=== PATIENT | female | born 1975 | race Hispanic/Latino ===

== ENCOUNTER 2016-07-10 19:08 | Inpatient (IN) | payer MEDICAID, OTHER ==
[~2016-07-10] VITALS: Ht 154.9 cm; Wt 58.3 kg
--- NOTE | 2016-07-10 19:12 | ED.REPORT ---
HPI-Neurologic Deficit Date of Service Jul 10, 2016 ED Provider: Rachana Jamil MD Pt is a 40 y/o Khmer speaking female w/ a hx of uncontrolled hypertension presenting to the ED with family due to stroke-like symptoms onset about 19:00 today. The patient and her family were eating food and they noticed that she was eating slowly she did not notice this. She then went to the restroom and came back complaining of abdominal pain which has persisted. Associated symptoms include numbness of bilateral upper extremities, focal weakness of the left side, difficulty speaking in the sense that when she talks she speaks slowly with slurred speech, chest tightness, nausea, vomiting, and shortness of breath. Pt denies fever, chills, vision change. At time of interview, she is experiencing chest tightness, SOB, Denies nausea, vomiting. Nursing Notes Stated Complaint: UNABLE TO MOVE L SIDE Nursing Notes Reviewed: Yes Allergies: Coded Allergies: No Known Allergies (Verified Allergy, Severe, 01/18/04) General Time Seen by Provider: 19:13 Chief Complaint Other (slurred speech and left arm weakness) Hx Obtained From: Patient, Other family... Arrived By: Walk-in Sudden in Onset?: Yes Onset Occurred: 16 - 30 minutes ago Symptom Duration: Since onset Progression Since Onset: Rapidly improving Location: : Abdomen: Chest Quality: Painful Radiation: : Does not radiate Severity: Current: Mild Severity: Maximum: Moderate Similar Sx Previous: No Risk Factors TPA Administration/Criteria Stroke Thrombolytic Therapy : TPA Considered: Yes Neurologist Contacted: Yes TPA Administered Intravenously: No, not indicated NIH Stroke Scale Level of Consciousness: Alert and responsive (0) Ask Month & Age: 1 question right (1) (age incorrect) Open/Close Eyes/Hand Environmental Engineering Technician: Performs both tasks (0) Horizontal EO Movements: None (0) Visual Frank: No visual loss (0) Facial Palsy: Minor paralysis (1) (mild, right) Right Arm Motor Drift (10s): No drift 10 sec (0) Left Arm Motor Drift (10s): Drift, not touch bed (1) Right Leg Motor Drift (5s): No drift 5 sec (0) Left Leg Motor Drift (5s): No drift 5 sec (0) Limb Ataxia FNF/Heel-Centeno: No ataxia (0) Sensation (Arms/Legs/Face): No sensory loss (0) Language Aphasia: No aphasia, normal (0) Dysarthria: No dysarthria, normal (0) Extinction/Inattention: No exctinct/inattent (0) NIHSS Score: 3 Time NIHSS Performed: 20:00 Date NIHSS Performed: Jul 10, 2016 Past Medical History Past Medical History Hypertension - uncontrolled Past Surgical History Denies Social History Alcohol Use: Denies alcohol use Other Social History: Good social support Ambulatory Status Independent Review of Systems Constitutional: Denies: Chills, Fever Respiratory: Reports: Shortness of breath Cardiovascular: Reports: Chest pain GI: Reports: Abdominal pain, Nausea, Vomiting Neurologic: Reports: Change LOC, Focal weakness, Numbness, Slurred speech, Denies: Vision change Complete sys rev & neg: except as marked. Physical Exam Initial Vital Signs Vital Signs (First) Date Time Temp Pulse Resp B/P Pulse Ox O2 Delivery O2 Flow Rate FiO2 07/10/16 19:15 36.1 78 20 140/92 Room Air 07/10/16 20:00 100 Initial VS: Reviewed, Vital signs normal ENT: Mucous membranes moist, Conjunctiva normal, No scleral icterus Neck: Supple, Full range of motion Skin: Warm, Dry, No cyanosis Psychiatric: Mood/affect normal, Behavior normal, Normal thought content General/Constitutional: Awake, Alert, No acute distress, Cooperative, Not toxic appearing Head / Eyes: Atraumatic, Normocephalic, PERRL, EOMI, No nystagmus, No periorbital redness, No periorbital swelling Respiratory / Chest: Atraumatic, Breath sounds NL, Breath sounds = bilat, No respiratory distress, No rales, No rhonchi, No wheezing, No retractions, No stridor, No chest tenderness, No chest wall deformity, No crepitus Cardiovascular: Heart rate NL, Regular rhythm, Heart sounds NL, No gallop, No murmurs, No rubs, Cap refill not delayed, Peripheral circulation NL Neurologic: Oriented X3, Speech NL, No sensory deficits, Cerebellar NL Slight right sided facial droop. 5/5 strength bilateral upper extrem but left weaker than right. Abdomen: Atraumatic, Soft, Non-tender, No guarding, No rebound, No palpable mass Interpretation & Diagnostics Interpretation & Diagnostics: CTA chest/abdomen w/ and w/out contrast: IMPRESSION: No aortic dissection or aneurysm. Gallbladder filled with calculi, and possibly sludge. No definite pericholecystic fluid or biliary ductal dilatation. Recommend clinical correlation and with LFTs to exclude acute cholecystitis. Distended stomach and proximal duodenum. Dictated by: Onel Parish M.D. on 07/10/2016 at 19:54 Approved by: Onel Parish M.D. on 07/10/2016 at 20:01 Lab Results Interpretation Result Diagram: 07/10/16 1720 07/10/16 1720 Test 07/10/16 17:20 White Blood Count 7.2th/mm3 (3.8-10.1) Red Blood Count 4.52mil/mm3 (3.90-5.20) Hemoglobin 12.6g/dL (12.0-15.6) Hematocrit 37.5% (35.0-46.0) Mean Corpuscular Volume 83.0fL (81-100) Mean Corpuscular Hemoglobin 27.9pg (27.0-35.0) Mean Corpuscular Hemoglobin Concent 33.6% (32.0-37.0) Red Cell Distribution Width 13.5% (12.3-15.4) Platelet Count 212bil/L (150-400) Neutrophils (%) (Auto) 43.0% (40-74) Lymphocytes (%) (Auto) 50.2% (14-46) Monocytes (%) (Auto) 5.1% (4-12) Eosinophils (%) (Auto) 1.0% (0-5) Basophils (%) (Auto) 0.6% (0-3) Hold Purple Top Tube Received (Received) Prothrombin Time 10.1sec (8.1-12.5) Prothromb Time International Ratio 0.95ratio Activated Partial Thromboplast Time 22.5sec (22.8-33.0) Hold Blue Top Tube Received (Received) Sodium Level 138mEq/L (134-144) Potassium Level 3.1mEq/L (3.5-5.2) Chloride Level 102mEq/L (97-108) Carbon Dioxide Level 21mmol/L (18-29) Blood Urea Nitrogen 22mg/dL (6-20) Creatinine 0.59mg/dL (0.57-1.00) Estimat Glomerular Filtration Rate 163mL/min (>59) Glucose Level 139mg/dL (60-99) Calcium Level 8.4mg/dL (8.5-10.1) Total Bilirubin 0.2mg/dL (0.0-1.2) Aspartate Amino Transf (AST/SGOT) 103U/L (0-50) Alanine Aminotransferase (ALT/SGPT) 59U/L (0-32) Alkaline Phosphatase 80U/L (25-150) Troponin T < 0.010ug/L (0.0-0.011) Total Protein 6.9g/dL (6.4-8.4) Albumin 4.0g/dL (3.4-5.0) Hold Red Top Tube Received (Received) Hold [place] Top Tube Received (Received) Hold Muse Top Tube Received (Received) ECG Interpretation ECG Interpretation: Sinus rhythm rate 80 Small Q wave lead III T wave inversion in AvR and V1 Time: 19:28 Interpreted by: ED physician Normal ECG Interpretation: No acute ischemic changes CT Head Interpretation IMPRESSION: No acute intracranial process This study fulfills neurological imaging criteria for inclusion or exclusion of acute stroke therapies based on available published neurological imaging guidelines. Dictated by: Onel Parish M.D. on 07/10/2016 at 19:23 Approved by: Onel Parish M.D. on 07/10/2016 at 19:26 Study: Head CT no contrast Interpretation / Wet Read by: Interpret - Radiologist Re-Eval/Medical Decision Med Decision/Clinical Course 40-year-old female with past medical history of untreated hypertension here as stroke activation for left-sided weakness. Differential diagnosis includes but is not limited to TIA versus ischemic versus hemorrhagic stroke versus electrolyte abnormality. Patient's CT head was negative, however, given she was also having chest pain and abdominal pain, I opted to rule out dissection with her focal neurologic deficit. She does not have any evidence of aortic dissection, and was feeling much better after her CT scans. Of note, her CT scan did show a gallbladder with stones and she has mildly elevated LFTs, however, her abdomen is benign at this time, and I do not feel she requires ultrasound of her gallbladder to rule out cholecystitis. I discussed the case with neurology at [facility], who agreed that since her symptoms have resolved, she is not a TPA candidate. However, they did recommend she get a CTA of her head. I have admitted her to the hospitalist service for fluid hydration, given she has already received a dye load from her aortic study. They will order a CTA of her head tomorrow, and in addition to TIA workup. She and her family are aware and amenable to plan at this time. Re-Evaluation/Progress : Time of Eval: 20:17 )( Re-Eval Neurologic Exam: Pt is back to baseline Re-Evaluation/Progress Note: Pt rechecked. NIH stroke scale is now 0. Informed pt of need for admission for further workup. Pt understands and agrees with plan for admission. All questions addressed. Consultation #1: Consulted With: Neurology Call Returned at: 20:10 Note: Case discussed with [facility] Stroke Neurologist. Recommends NO TPA. Consultation #2: Referral / Consult Name: Michi Monet MD Consulted With: Hospitalist Call Returned at: 21:00 Er Nurse: Will see patient, Agrees with eval, Agrees with plan, Accepts admit Counseled Regarding: Diagnosis, Lab results, Need for admission Discharge & Departure Impression: Primary Impression: Transient ischemic attack Transient cerebral ischemia type: unspecified Qualified Code: G45.9 - Transient cerebral ischemic attack, unspecified Disposition: ADMITTED TO HOSPITAL Discharge Condition All VS Reviewed: Yes Condition: Stable Scribe Attestation Portions of this note were transcribed by Maxim Rader. I, Dr. Jamil, personally performed the history, physical exam and medical decision-making; I reviewed and confirmed the accuracy of the information in the transcribed note. Signed by Harper Monk, 07/10/16 - 1944 Rachana Jamil MD Jul 10, 2016 19:12 MAXIM RADER Jul 10, 2016 19:18
[2016-07-10 19:15] VITALS: BP 140/92; PULSE 78; RESP 20
--- NOTE | 2016-07-10 19:28 | DRSVH ---
PROCEDURE: CT BRAIN (TPA) ([id number]) INDICATIONS: Stroke TECHNIQUE: Noncontrast 4.5 mm thick angled axial sections acquired from the foramen magnum to the vertex, with c oronal reformats. COMPARISON: None. FINDINGS: Image quality: Excellent. CSF spaces: Basal cisterns are patent. No extra-axial fluid collections. Ventricles are normal in size and shape. Brain: No midline shift. No intracranial masses or hemorrhage. Henry-white matter interface is norm al. Skull and face: Calvarium and visualized facial bones are intact, without suspicious lesions. Sinuses: Visualized sinuses and mastoids are clear. IMPRESSION: No acute intracranial process This study fulfills neurological imaging criteria for inclusion or exclusion of acute stroke therapie s based on available published neurological imaging guidelines. Dictated by: Onel Parsih M.D. on 07/10/2016 at 19:23 Approved by: Onel Parish M.D. on 07/10/2016 at 19:26
[2016-07-10] MEDS ORDERED: Ondansetron 2 mg/mL 2 mL Inj ONE (19:35)
[2016-07-10] MEDS ORDERED: Ondansetron 2 mg/mL 2 mL Inj IVPUSH ONE (19:40)
[2016-07-10 20:00] VITALS: BP 122/60; PULSE 79; RESP 18; O2SAT 100
--- NOTE | 2016-07-10 20:03 | DRSVH ---
PROCEDURE: CT ANG CHEST/ABD W/WO CONTRAST ([id number]) INDICATIONS: left neuro deficit + chest pain TECHNIQUE: Precontrast 5 mm thick sections acquired from the lung apices to the iliac crests. After the adminis tration of intravenous contrast, 3 mm thick sections again acquired from the lung apices to the iliac crests. 3-dimensional maximum intensity projection (MIP) oblique sagittal and coronal reformats wer e then acquired, and/or 3-dimensional volume rendering reformats. For radiation dose reduction, the following was used: automated exposure control. COMPARISON: None. FINDINGS: Image quality: Excellent. AORTA: Normal. No evidence of aneurysm or dissection. No periaortic hematoma. CHEST: Lungs and pleura: No acute airspace opacities. No pleural effusions or pneumothorax. Central and p eripheral airways are patent and normal in caliber. Mediastinum: Heart size is normal. No pericardial effusion. No mediastinal or hilar adenopathy by size criteria. Central pulmonary arteries are normal in size. Esophagus is normal in caliber. No h iatal hernias. Bones and chest wall: No axillary adenopathy by size criteria. Thyroid gland negative. No suspicio us bony lesions. No vertebral body compression fractures. ABDOMEN: Vasculature: Celiac trunk and mesenteric arteries are patent. Renal arteries are also patent. Solid organs: Liver and spleen are normal in size. Gallbladder contains innumerable gravel-like hung culi and cholesterol calculi. There may also be gallbladder sludge Possible gallbladder wall thickeni ng although not well seen large amount of intraluminal contents. No pericholecystic fluid or edema.. Biliary system is non dilated. Pancreas enhances normally. No adrenal nodules. Both kidneys are n ormal in size and enhancement, without hydronephrosis. Peritoneum and bowel: No free fluid or air. The stomach and proximal duodenum are markedly distended Bowel loops are normal in caliber and wall thickness. Nodes and vessels: No retroperitoneal or mesenteric adenopathy by size criteria. Inferior vena cava is normal in morphology. Bones: No suspicious bony lesions. No vertebral body compression fractures. Miscellaneous: No ventral hernias. IMPRESSION: No aortic dissection or aneurysm. Gallbladder filled with calculi, and possibly sludge. No definite pericholecystic fluid or biliary du ctal dilatation. Recommend clinical correlation and with LFTs to exclude acute cholecystitis. Distended stomach and proximal duodenum. Dictated by: Onel Parish M.D. on 07/10/2016 at 19:54 Approved by: Onel Parish M.D. on 07/10/2016 at 20:01
[2016-07-10 20:04] LABS: BASOPHILS % (AUTO) 0.6 % (0-3); MONOCYTES % (AUTO) 5.1 % (4-12); Mean Corpuscular Hemoglobin 27.9 pg (27.0-35.0); Platelet Count 212 bil/L (150-400)
[2016-07-10 20:11] LABS: INR 0.95 ratio
[2016-07-10 20:36] LABS: TROPONIN T < 0.010 ug/L (0.0-0.011)
[2016-07-10] MEDS ORDERED: Alum-Mag Hydrox-Simeth 30 mL Suspension PO PRN ×2 (21:15→23:25)
[2016-07-10] MEDS ORDERED: Ondansetron 2 mg/mL 2 mL Inj IVPUSH PRN (21:15)
[2016-07-10 22:10] VITALS: BP 109/70; PULSE 71; RESP 16; O2SAT 94
[2016-07-10 22:15] LABS: APPEARANCE,URINE CLEAR (CLEAR,HAZY); COLOR,URINE YELLOW (YELLOW); OCCULT BLOOD,URINE LARGE (NEGATIVE); PH,URINE 7.5 (5.0-8.0); UROBILINOGEN,URINE NORMAL (NORMAL)
[2016-07-10 22:35] VITALS: PULSE 74
--- NOTE | 2016-07-10 22:45 | NUR ---
Admit to room 1021 report received from Rachana London in the ED at 2135. pt arrived to room approximately at 2150 via gurney. pt transferred self to bed. boy friend at bedside. pt c/o 3/10 abdominal pain. will administer pain medication. VSS. admission and med-rec.is finished. pt state she doesn't take any medication at home. oreinted pt to room and call light. will continue to monitor.
[2016-07-10] MEDS ORDERED: Polyethylene Glycol (PEG) 17 Gm Powder PO PRN (23:25)
[2016-07-10] MEDS ORDERED: Ondansetron 2 mg/mL 2 mL Inj IV PRN (23:25)
--- NOTE | 2016-07-10 23:56 | PCM.HPMED ---
Subjective Date of Service Jul 10, 2016 Primary Provider: Admitting Physician: Michi Monet MD Primary Care Physician: [facility] Attending Physician: Michi Monet MD Admit Status: From the Emergency Department Chief Complaint: Facial droop and focal weakness with inability to move left side History of Present Illness: Tammy is a 40 y/o 4 Pakistani speaking F with a hx of poorly controlled HTN (not currently on blood pressure medication) who presented to the ED with acute onset dysarthria and left-sided weakness about 7 PM on 07/10/2016. Associated symptoms included acute persistent abdominal pain. Patient states she was eating a greasy meal during dinnertime when she began to have epigastric abdominal pain that she describes as sharp 10 out of 10 onset approximately 4 hours ago. Patient described left upper extremity numbness and tingling especially in the hand with associated weakness lasting approximately 30 minutes now resolved. Patient describes slurred speech lasting approximately 30 minutes now resolved. Patient reportedly had difficulty eating her food at that time. Patient reports that she vomited once when in the ED. She endorses dizziness and weakness when standing to walk. Patient had CT chest and abdomen which showed gallbladder calculi. Patient's LFTs were elevated at ALT 59, AST 103. Associated symptoms included numbness of bilateral upper extremities, focal weakness of the left side, slurred speech , chest tightness, nausea, vomiting, and shortness of breath. She denies ever having experienced any of the symptoms of abdominal pain or weakness/slurred speech prior to today, denied fever, chills, vision change, diarrhea, constipation, sick contacts, travel. In the ED NIH stroke scale was 3 for facial palsy, left arm motor drift, and failure to identify month/age. EKG showed normal sinus rhythm, with a rate of 80, QT of 377, QTC of 435, no ST/ T-wave changes or upper allergies. CT angiogram chest and abdomen showed: No aortic dissection or aneurysm. Gallbladder filled with calculi, and possibly sludge. No definite pericholecystic fluid or biliary ductal dilatation. Recommend clinical correlation and with LFTs to exclude acute cholecystitis. Distended stomach and proximal duodenum. CT brain showed: No acute intracranial process Vital signs in ED: Temperature 36.1, pulse 79, pressure 122/60, respiratory rate 18, 100% room air. Hemogram: Leukocytes 50.2H, blood cell count 7.2, hemoglobin 12.6, hematocrit 37.5, platelets 212. Chemistry panel: Sodium 138, potassium 3.1, chloride 102, CO2 21, BUN 22, creatinine 0.59, glucose 139, calcium 8.4, AST 103 H, ALT 59 H, alkaline phosphatase 80, troponin 0.10. Review of Systems: Comprehensive review of systems was conducted and found to be negative except as described in history of present illness. Allergies Coded Allergies: No Known Allergies (Verified , 01/18/04) Home Medications No home medication. PMH Hypertension - uncontrolled Surgical History Denies past surgical history Family History Noncontributory Social History Hx Alcohol Use: No Hx Substance Use: No Hx Tobacco Use: No Smoking Status: Never Smoker Living Arrangement: with Family (is with her boyfriend) Exam Vital Signs Vital Sign - Last Date Time Temp Pulse Resp B/P Pulse Ox O2 Delivery O2 Flow Rate FiO2 07/10/16 20:00 79 18 122/60 100 Room Air 07/10/16 19:15 36.1 Exam General: Patient appears stated age and in no acute distress, alert and oriented 3, talking in full sentences, HEENT: NC/AT, eyes PERRLA, EOMI, neck supple, nontender, no nuchal signs, no adenopathy, no JVD, no masses, throat no erythema, mucous membranes pink and moist, Lungs: Lungs clear to auscultation bilaterally cali no wheezes no rhonchi no crackles Heart: Heart regular rate and rhythm without murmur, S1-S2 present Abdomen: Abdomen is soft, bowel sounds are active, abdomen is tender to palpation in the right upper quadrant and epigastric region. Otherwise abdominal exam is normal. Genitourinary: No suprapubic tenderness no CVA tenderness Extremities: Muscle strength is 5 out of 5 upper/lower extremity no edema, pulses equal upper/lower extremity Neurologic: Cranial nerves II through XII intact bilaterally, finger to nose and [id number] was normal, Skin: Good skin turgor, Refill less than 2 seconds, Psychiatric: Mood and affect were appropriate and congruent. Lab and Diagnostics Result Diagram: 07/10/16171907/10/161719 X-Rays, CTs and MRIs Date of Service: 07/10/161922 PROCEDURE: CT ANG CHEST/ABD W/WO CONTRAST INDICATIONS: left neuro deficit + chest pain FINDINGS: AORTA: Normal. No evidence of aneurysm or dissection. No periaortic hematoma. CHEST: Lungs and pleura: No acute airspace opacities. No pleural effusions or pneumothorax. Central and peripheral airways are patent and normal in caliber. Mediastinum: Heart size is normal. No pericardial effusion. No mediastinal or hilar adenopathy by size criteria. Central pulmonary arteries are normal in size. Esophagus is normal in caliber. No hiatal hernias. Bones and chest wall: No axillary adenopathy by size criteria. Thyroid gland negative. No suspicious bony lesions. No vertebral body compression fractures. ABDOMEN: Vasculature: Celiac trunk and mesenteric arteries are patent. Renal arteries are also patent. Solid organs: Liver and spleen are normal in size. Gallbladder contains innumerable gravel-like calculi and cholesterol calculi. There may also be gallbladder sludge Possible gallbladder wall thickening although not well seen large amount of intraluminal contents. No pericholecystic fluid or edema.. Biliary system is non dilated. Pancreas enhances normally. No adrenal nodules. Both kidneys are normal in size and enhancement, without hydronephrosis. Peritoneum and bowel: No free fluid or air. The stomach and proximal duodenum are markedly distended Bowel loops are normal in caliber and wall thickness. Nodes and vessels: No retroperitoneal or mesenteric adenopathy by size criteria. Inferior vena cava is normal in morphology. Bones: No suspicious bony lesions. No vertebral body compression fractures. Miscellaneous: No ventral hernias. IMPRESSION: No aortic dissection or aneurysm. Gallbladder filled with calculi, and possibly sludge. No definite pericholecystic fluid or biliary ductal dilatation. Recommend clinical correlation and with LFTs to exclude acute cholecystitis. Distended stomach and proximal duodenum. Dictated by: Onel Parish M.D. on 07/10/2016 at 19:54 Approved by: Onel Parish M.D. on 07/10/2016 at 20:01 Date of Service: 07/10/161910 PROCEDURE: CT BRAIN (TPA) INDICATIONS: Stroke TECHNIQUE: Noncontrast 4.5 mm thick angled axial sections acquired from the foramen magnum to the vertex, with coronal reformats. COMPARISON: None. FINDINGS: Image quality: Excellent. CSF spaces: Basal cisterns are patent. No extra-axial fluid collections. Ventricles are normal in size and shape. Brain: No midline shift. No intracranial masses or hemorrhage. Henry-white matter interface is normal. Skull and face: Calvarium and visualized facial bones are intact, without suspicious lesions. Sinuses: Visualized sinuses and mastoids are clear. IMPRESSION: No acute intracranial process This study fulfills neurological imaging criteria for inclusion or exclusion of acute stroke therapies based on available published neurological imaging guidelines. Dictated by: Onel Parish M.D. on 07/10/2016 at 19:23 Approved by: Onel Parish M.D. on 07/10/2016 at 19:26 Assessment & Plan Tammy is a 40 y/o 4 Pakistani speaking F with a hx of poorly controlled HTN (not currently on blood pressure medication) who presented with left-sided upper extremity numbness and tingling and weakness with associated slurred speech lasting approximately 30 minutes and acute onset epigastric/right upper quadrant persistent abdominal pain onset 7 PM on 07/10/2016 after eating a greasy meal. Patient was admitted to the hospital for TIA workup. # Acute Stroke, present on admission, active -CT brain: No acute intracranial process -CT angiogram Head in the a.m. given patient had contrast this evening with pelvic CT -MRA Brain to follow to R/O hemorrhagic conversion -Thrombolysis-->patient was not a candidate -Aspirin 325 mg daily -Start Atorvastatin 40 mg daily -Vital signs + Neuro checks Q 15 min for 2 hr, then Q 30 min for 6 hr, then Q 60 min up to 24 hours. -Continuous Cardiac Monitoring -Permissive HTN -BP goal if not on thrombolysis is to treat only if > 220 systolic or 120 Diastolic. Patient's current blood pressure is 109/70 -NIHSS score of 3, for not being able to identify month/age, for facial droop, and for left arm motor drift. -Elevate Head of Bed 30 degrees for those at risk of increased intracranial pressure/Aspiration risk. -If febrile maintain Normothermia -PT/OT/speech evaluation in the a.m. # Acute abdominal pain, present on admission, active -Abdominal exam significant for epigastric and right upper quadrant pain with palpation otherwise normal exam. -CT angiogram chest and abdomen showed: No aortic dissection or aneurysm. Gallbladder filled with calculi, and possibly sludge. No definite pericholecystic fluid or biliary ductal dilatation. Recommend clinical correlation and with LFTs to exclude acute cholecystitis. Distended stomach and proximal duodenum. -Zofran for nausea -Tylenol for pain Chronic problems # Hypertension -He should not currently on pressure medication Disposition: Admitted to in patient service with expected length of stay greater than 2 days, secondary to severity of presenting symptoms, treatment plan, complexity of clinical work up, and risk of adverse events. CODE STATUS: Full code PCP: [facility] DVT and PE prophylaxis: subcutaneous heparin Pain Evaluation: Adequate Pain Control (4 out of 10 pain at time of exam) VTE Prophylaxis: Sub-Q Heparin (Unfractionated) Resuscitation Status: CPR: Attempt Resuscitation Attending Statement The patient was seen and examined together with Dr. Clark on 07/10 and I agree with the history, exam and plan as outlined in the note above. Joey Clark DO Jul 10, 2016 22:50 Michi Monet MD Jul 11, 2016 01:49
[2016-07-11] MEDS: Heparin 5,000 Unit/mL Inj SUBQ SCH ×3 (00:02→18:14)
[2016-07-11 00:15] VITALS: BP 126/78; PULSE 63; RESP 18; O2SAT 99
[2016-07-11 02:04] VITALS: BP 121/69; PULSE 68; RESP 16; O2SAT 99
--- NOTE | 2016-07-11 05:55 | NUR ---
pain C/O of 4/10 right side abdominal and epigastric pain. Administered PRN PO Tylenol. pt report pain relief on rate of 1/10 which is her goal without any further complaints. Bed is locked an in low position. call light within reach. will continue to monitor.
[2016-07-11 06:00] VITALS: BP 116/76; PULSE 60; RESP 16; O2SAT 100
[2016-07-11 06:41] LABS: Magnesium 2.1 mg/dL (1.6-2.6)
[2016-07-11 06:48] LABS: BASOPHILS % (AUTO) 0.6 % (0-3); MONOCYTES % (AUTO) 7.1 % (4-12); Mean Corpuscular Hemoglobin 27.6 pg (27.0-35.0); Mean Corpuscular Volume 83.1 fL (81-100); NEUTROPHILS % (AUTO) 61.3 % (40-74); Platelet Count 204 bil/L (150-400)
[2016-07-11] MEDS ORDERED: Influenza (Adult) Vaccine 0.5 mL Syringe IM ONE (08:30)
[2016-07-11 09:50] LABS: Bilirubin, Direct 0.2 mg/dL (0.0-0.3)
--- NOTE | 2016-07-11 10:26 | NUR ---
Evaluation completed. Please go to "Notes" then click on "Assessments and Notes" (bottom left corner of screen). Then select appropriate discipline tab on top of screen.
--- NOTE | 2016-07-11 10:34 | NUR ---
Evaluation completed. Please go to "Notes" then click on "Assessments and Notes" (bottom left corner of screen). Then select appropriate discipline tab on top of screen.
--- NOTE | 2016-07-11 13:39 | DRSVH ---
PROCEDURE: MRI BRAIN WITHOUT CONTRAST ([id number]) INDICATIONS: Stroke TECHNIQUE: Noncontrast axial T1 spin echo, axial T2 fast spin echo, sagittal and axial FLAIR, coronal T2 fast sp in echo, axial gradient echo, axial diffusion and ADC through the brain. COMPARISON: [facility], CT, BRAIN (TPA), 07/10/2016, 19:16. FINDINGS: Image quality: Excellent. CSF Spaces: Basal cisterns are patent. No extra-axial fluid collections. Ventricles are normal in size and shape. Brain: There is a focus of T2/FLAIR hyperintensity in the frontal periventricular white matter. No i ntracranial masses or hemorrhage. Diffusion-weighted images demonstrate no acute ischemic insult. N ormal intravascular flow voids are present. Brainstem appears normal. There is a deep sulcus or cleft in the left frontal lobe involving the precentral/postcentral gyri. T here is no definitive connection between the cleft through the lateral ventricle. The septum pellucid a is present and normal. Adjacent gyri appear slightly atrophic. Mild FLAIR hyperintensity along the cleft is consistent with mild gliosis. Skull and face: Calvarium has normal marrow signal. There is a 7 mm round susceptibility artifact i n the left frontal vertex correlating with a round, protrusion of the densel calcification of the lef t frontal bone seen on CT. Orbits appear normal. Sinuses: Sinuses and mastoids are clear. IMPRESSION: 1. No acute intracranial abnormalities. No evidence for acute stroke. 2. A focus of T2/FLAIR hyperintensity in the right frontal paraventricular white matter. Differential diagnoses include chronic small vessel ischemia versus a demyelinating process such as multiple scle rosis. Recommend clinical correlation. 3. 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 There is mild gyri atrophy and gliosis a long the cleft. There is no definite connection between the cleft and the left lateral ventricle. The septum pellucidum is present and appears normal. Differential diagnosis include congenital anomaly ( clastic schizencephaly), sequelae of remote ischemic insult and trauma. Comparison to prior outside e xaminations, if available, would be helpful. Dictated by: Umair Madrigal M.D. on 07/11/2016 at 13:20 Transcribed by: MERLIN on 07/11/2016 at 13:39 Approved by: Umair Madrigal M.D. on 07/12/2016 at 10:19
--- NOTE | 2016-07-11 14:09 | PCM.PNMED ---
Subjective Date of Service Jul 11, 2016 Subjective Follow-up follow TIA versus CVA. Abdominal pain and elevated LFTs Patient seen and examined at bedside. She is feeling better and tolerated oral intake. No nausea no vomiting. No new neurological deficit. LFT is on the rise. MRI showed A focus of T2/FLAIR hyperintensity in the right frontal paraventricular white matter. Differential diagnoses include chronic small vessel ischemia versus a demyelinating process such as multiple sclerosis. No acute CVA Exam Vital Signs Vital Sign - Last Date Time Temp Pulse Resp B/P Pulse Ox O2 Delivery O2 Flow Rate FiO2 07/11/16 06:00 36.7 60 16 116/76 100 Room Air Intake and Output 07/10/16 07/10/16 07/11/16 Cumulative From/Thru 15:00 23:00 07:00 07/10/16 19:15 - 07/11/16 06:56 Intake Total 0 ml 0 ml Output Total 350 ml 350 ml Balance -350 ml -350 ml Intake Oral 0 ml 0 ml Output Urine Total 350 ml 350 ml Exam General: Well-nourished female. Pleasant nightly distress Neck supple no JVD, no carotid bruit, no thyromegaly Chest: Normal respiratory effort Long: long clear bilaterally , no wheezing Heart regular rate and rhythm no gallop or murmur Abdomen: Right upper quadrant with mild tenderness. No epigastric tenderness. No palpable mass Extremity: No edema, no cyanosis Neuro: nonfocal. AAO x 3 IVs and Medications Medications Reviewed: Medications were reviewed in detail Lab and Diagnostics Result Diagram: 07/11/1652607/11/16526 X-Rays, CTs and MRIs Date of Service: 07/10/161922 PROCEDURE: CT ANG CHEST/ABD W/WO CONTRAST INDICATIONS: left neuro deficit + chest pain FINDINGS: AORTA: Normal. No evidence of aneurysm or dissection. No periaortic hematoma. CHEST: Lungs and pleura: No acute airspace opacities. No pleural effusions or pneumothorax. Central and peripheral airways are patent and normal in caliber. Mediastinum: Heart size is normal. No pericardial effusion. No mediastinal or hilar adenopathy by size criteria. Central pulmonary arteries are normal in size. Esophagus is normal in caliber. No hiatal hernias. Bones and chest wall: No axillary adenopathy by size criteria. Thyroid gland negative. No suspicious bony lesions. No vertebral body compression fractures. ABDOMEN: Vasculature: Celiac trunk and mesenteric arteries are patent. Renal arteries are also patent. Solid organs: Liver and spleen are normal in size. Gallbladder contains innumerable gravel-like calculi and cholesterol calculi. There may also be gallbladder sludge Possible gallbladder wall thickening although not well seen large amount of intraluminal contents. No pericholecystic fluid or edema.. Biliary system is non dilated. Pancreas enhances normally. No adrenal nodules. Both kidneys are normal in size and enhancement, without hydronephrosis. Peritoneum and bowel: No free fluid or air. The stomach and proximal duodenum are markedly distended Bowel loops are normal in caliber and wall thickness. Nodes and vessels: No retroperitoneal or mesenteric adenopathy by size criteria. Inferior vena cava is normal in morphology. Bones: No suspicious bony lesions. No vertebral body compression fractures. Miscellaneous: No ventral hernias. IMPRESSION: No aortic dissection or aneurysm. Gallbladder filled with calculi, and possibly sludge. No definite pericholecystic fluid or biliary ductal dilatation. Recommend clinical correlation and with LFTs to exclude acute cholecystitis. Distended stomach and proximal duodenum. Dictated by: Onel Parish M.D. on 07/10/2016 at 19:54 Approved by: Onel Parish M.D. on 07/10/2016 at 20:01 Date of Service: 07/10/161910 PROCEDURE: CT BRAIN (TPA) INDICATIONS: Stroke TECHNIQUE: Noncontrast 4.5 mm thick angled axial sections acquired from the foramen magnum to the vertex, with coronal reformats. COMPARISON: None. FINDINGS: Image quality: Excellent. CSF spaces: Basal cisterns are patent. No extra-axial fluid collections. Ventricles are normal in size and shape. Brain: No midline shift. No intracranial masses or hemorrhage. Henry-white matter interface is normal. Skull and face: Calvarium and visualized facial bones are intact, without suspicious lesions. Sinuses: Visualized sinuses and mastoids are clear. IMPRESSION: No acute intracranial process This study fulfills neurological imaging criteria for inclusion or exclusion of acute stroke therapies based on available published neurological imaging guidelines. Dictated by: Onel Parish M.D. on 07/10/2016 at 19:23 Approved by: Onel Parish M.D. on 07/10/2016 at 19:26 Assessment & Plan Tammy is a 40 y/o 4 Macedonian speaking F with a hx of poorly controlled HTN (not currently on blood pressure medication) who presented with left-sided upper extremity numbness and tingling and weakness with associated slurred speech lasting approximately 30 minutes and acute onset epigastric/right upper quadrant persistent abdominal pain onset 7 PM on 07/10/2016 after eating a greasy meal. Patient was admitted to the hospital for TIA workup. 1. CVA : Patient has no deficit. -CT brain: No acute intracranial process -MRA Brain show no acute intracranial process. There is A focus of T2/FLAIR hyperintensity in the right frontal paraventricular white matter. Differential diagnoses include chronic small vessel ischemia versus a demyelinating process such as multiple sclerosis. Neurology follow-up as outpatient and possible repeat MRI and 4 weeks 2. Acute cholelithiasis : CT scan show gallbladder sludge and multiple stone. No evidence of infection. Ultrasound requested. Consider surgery consult for cholecystectomy 3. Elevated LFT: Worsening. Will obtain right upper quadrant ultrasound. Repeat liver panel in a.m.. VTE Prophylaxis: Sub-Q Heparin (Unfractionated) VTE Mechanical Devices: Intermittant Pneumatic CD Resuscitation Status: CPR: Attempt Resuscitation Time spent 25 minutes Jt Waite MD Jul 11, 2016 14:09
--- NOTE | 2016-07-11 14:58 | NUR ---
Social Work-screening: Data:EMR Reviewed. Pt is on day 1 of hospitalization for TIA per H&P. Pt's insurance is [employer] and PCP is [facility]. EMR Reviewed. Pt resides at home with her SO where she remains independent with ADLS. PT/ST/OT have cleared pt for home with outpt services. Pt's SO to provide transport home at discharge. No anticipated discharge needs. SW will continue to follow if needs arise. Assessment:Pt who is independent at baseline. Plan:Pt to discharge home when medically stable via POV. PT/ST/OT have cleared pt for home with outpt services. Pt's SO to provide transport home at discharge. No anticipated discharge needs. SW will continue to follow if needs arise. ROGE Loyola
--- NOTE | 2016-07-11 16:03 | DRSVH ---
[facility] [address] [place] [address] Echocardiogram Report Name: ADDIS SAUCEDO Study Date: 07/11/2016 Height: 61 in Hospital Exam Location: [facility] Weight: 126 lb Gender: Female BSA: 1.6 m2 : 1975 Age: 40 yrs BP: 116/76 mmHg Reason For Study: Stroke History: HTN Ordering Physician: Performed By: Hafsa Ledezma HOSPITALIST [facility] Referring Physician: QUIQUE Interpretation Summary 1) Normal left ventricular thickness, size, and systolic function (EF 55- 60%). 2) No obvious focal wall motion abnormalities noted but poor endocardial definition reduces the sensitivity for the detection of such. 3) Normal right ventricular size and function. 4) No significant valvular abnormalities. 5) No intra-cardiac shunt present with bubble study and on color doppler. 6) No prior Echo available for comparison. Procedure: A two-dimensional transthoracic echocardiogram with color flow and Doppler was performed. The study quality was technically adequate. There is no prior echocardiogram noted for this patient. A saline contrast injection was performed to assess for cardiac shunting. The patient was in normal sinus rhythm during the exam. Left Ventricle: The left ventricle is normal in size, wall thickness, and systolic function without any focal wall motion abnormalities. The ejection fraction is estimated to be 55-60%. Left ventricular systolic function is normal. There are no obvious focal wall motion abnormalities noted but poor endocardial definition reduces the sensitivity for the detection of such. Assessment of diastolic parameters indicates normal left ventricular diastolic function and normal filling pressures. Right Ventricle: The right ventricle is normal in size and function. Atria: Both atria are normal in size. The interatrial septum is intact with no evidence for an atrial septal defect. There is no Doppler evidence for an interatrial shunt. Injection of contrast documented no interatrial shunt. Mitral Valve: The mitral valve is normal in structure and function. There is trace mitral regurgitation. Aortic Valve: The aortic valve is normal in structure and function. There is no aortic valve stenosis. No aortic regurgitation is present. Tricuspid Valve: The tricuspid valve is normal in structure and function. There is a trace or physiologic amount of tricuspid regurgitation. The right ventricular systolic pressure is estimated at 20 mmHg assuming a right atrial pressure of 3 mm Hg. Pulmonic Valve: The pulmonic valve is not well visualized. There is a trace or physiologic amount of pulmonic regurgitation. Great Vessels: The aortic root is normal size. The ascending aorta is normal in size. The aortic arch is normal in size. The IVC is of normal diameter and collapses greater than 50% with a sniff. This suggests a low right atrial pressure of 3 mm Hg. Pericardium/ Pleura There is no pericardial effusion. MMode/2D Measurements & Calculations LVIDd: 4.0 cm LA dimension: 2.8 cm RA long axis LVOT diam: 1.9 cm LVIDs: 2.6 cm AoV Opening FS: 34.7 % LA A2 area: 11.5 cm RA area EPSS: 0.70 cm LA A4 area: 16.6 cm Ao root diam IVSd: 0.68 cm LA length (vol) : 13.3 cm LVPWd: 0.74 cm RA vol Aortic Jxn: 2.1 cm LA vol: 35.0 ml : 34.5 ml asc Aorta Diam LA vol index RA : 22.2 mm2 Ao Arch Diam (Prox Trans): 2.4 cm IVC diam: 0.99 cm LV flanagan. diameter/BSA LV sys. diameter/BSA RVD1 (basal) (cm/m^2): 2.6 (cm/m^2): 1.7 Doppler Measurements & Calculations Ao V2 max MV E max manolo MV E/A: 1.7 TR max manolo : 129.1 cm/sec : 97.1 cm/sec Med Peak E' Manolo : 208.0 cm/sec Ao max PG MV A max manolo TR max PG : 6.7 mmHg : 55.7 cm/sec E/E' med: 10.6 : 17.3 mmHg Ao mean PG MV P1/2t: 49.9 msec Lat Peak E' Manolo PA V2 max : 104.1 cm/sec LVOT Max Manolo E/E' lat: 6.7 PA mean PG : 70.6 cm/sec E/e' average: 8.6 Pulm A Revs Dur PA Accel Time TOMER(I,D): 1.5 cm : 0.14 sec sev ratio MV A dur: 0.12 sec MV dec time MV P1/2t max manolo Ao V2 mean LV V1 max PG : 0.17 sec : 89.2 cm/sec MVA(P1/2t): 4.4 cm2 Ao V2 VTI: 28.2 cm LV V1 VTI TOMER(V,D): 1.6 cm2 : 14.1 cm PA V2 mean TOMER indexed to BSA Pulm A Revs Dur - MV : 69.2 cm/sec (cm^2/m^2): 0.94 A Dur: -0.04 msec Reading Physician:04:02 PM
[2016-07-11 16:26] VITALS: BP 108/70; PULSE 59; RESP 16; O2SAT 99
--- NOTE | 2016-07-11 18:11 | DRSVH ---
PROCEDURE: US ABDOMEN ([id number]) INDICATIONS: Elevated LFTs TECHNIQUE: Real-time scanning was performed of the abdominal and retroperitoneal organs, with image documentatio n. COMPARISON: None. FINDINGS: Liver: Liver is normal in size and increased in echogenicity. Evaluation limited secondary to posit ioning. Gallbladder: Numerous echogenic shadowing gallstones are demonstrated in the gallbladder. No definit e bladder wall thickening or pericholecystic fluid. Biliary ducts: Intrahepatic bile ducts are non-dilated. Extrahepatic bile duct caliber measures up to 5 mm. Normal is 6-7 mm or less in diameter, or 10 mm or less post-cholecystectomy. Pancreas: Not well-seen due to bowel gas. Spleen: Spleen is normal in size and homogeneous in echotexture. Kidneys: Right kidney measures 8.8 cm long; left kidney measures 9.6 cm long. No hydronephrosis. Aorta: Visualized aorta is normal in caliber at less than 3 cm. Iliacs: Proximal common iliac arteries are normal in caliber at less than 2.5 cm. IVC: Intrahepatic inferior vena cava is patent. Miscellaneous: No free abdominal fluid. IMPRESSION: 1. Cholelithiasis without evidence of cholecystitis or biliary duct dilatation. 2. Increased hepatic echogenicity compatible with steatosis. Dictated by: Juan Guerrero M.D. on 07/11/2016 at 18:08 Approved by: Juan Guerrero M.D. on 07/11/2016 at 18:09
--- NOTE | 2016-07-11 18:21 | NUR ---
Pain/Activity Pt had no c/o of pain today. Tolerated meals well with no nausea and no s/s of choking or aspiration. Q4 Neuro checks done with no deficits noted. All assessments done with rn ambulatory. All questions answered and pt states that she will say rn ambulatory and I can call one to answer any questions. Care continues.
[2016-07-11 21:33] VITALS: BP 124/78; PULSE 64; RESP 16; O2SAT 99
[2016-07-12] MEDS: Heparin 5,000 Unit/mL Inj SUBQ SCH ×2 (00:33→10:33)
[2016-07-12 05:39] VITALS: BP 129/69; PULSE 68; RESP 16; O2SAT 98
[2016-07-12 06:19] LABS: Mean Corpuscular Hemoglobin 27.4 pg (27.0-35.0); Mean Corpuscular Volume 84.2 fL (81-100)
--- NOTE | 2016-07-12 07:24 | NUR ---
care activity patient without complaints of pain throughout the shift. family wanted to know "when is she going home, tomorrow?" wanted to discuss the tests completed yesterday. explained that the hospitalist will answer these questions. son spent the night. patient slept well.
--- NOTE | 2016-07-12 09:01 | PCM.PNMED ---
Subjective Date of Service Jul 12, 2016 Subjective Follow-up for chronic cholelithiasis Patient seen and examined at bedside. No significant overnight events, she has no new complaints Exam Vital Signs Vital Sign - Last Date Time Temp Pulse Resp B/P Pulse Ox O2 Delivery O2 Flow Rate FiO2 07/12/16 05:39 36.7 68 16 129/69 98 Room Air Intake and Output 07/11/16 07/11/16 07/12/16 Cumulative From/Thru 15:00 23:00 07:00 07/10/16 19:15 - 07/12/16 05:39 Intake Total 600 ml 1200 ml 1800 ml Output Total 400 ml 650 ml 1400 ml Balance 200 ml 550 ml 400 ml Intake Oral 600 ml 1200 ml 1800 ml IV Total 0 ml 0 ml Output Urine Total 400 ml 650 ml 1400 ml # Bowel Movements 0 0 0 Exam General: Well-nourished female. nad Neck supple no JVD, no carotid bruit Chest: Normal respiratory effort, no chest wall tenderness Long: long clear bilaterally , no wheezing, no crackle Heart regular rate and rhythm no gallop or murmur Abdomen: Soft nontender .No epigastric tenderness. No palpable mass Extremity: No edema, no cyanosis, no calf tenderness Neuro: nonfocal. AAO x 3 IVs and Medications Medications Reviewed: Medications were reviewed in detail Lab and Diagnostics Result Diagram: 07/12/1654407/12/16544 X-Rays, CTs and MRIs Date of Service: 07/10/161922 PROCEDURE: CT ANG CHEST/ABD W/WO CONTRAST INDICATIONS: left neuro deficit + chest pain FINDINGS: AORTA: Normal. No evidence of aneurysm or dissection. No periaortic hematoma. CHEST: Lungs and pleura: No acute airspace opacities. No pleural effusions or pneumothorax. Central and peripheral airways are patent and normal in caliber. Mediastinum: Heart size is normal. No pericardial effusion. No mediastinal or hilar adenopathy by size criteria. Central pulmonary arteries are normal in size. Esophagus is normal in caliber. No hiatal hernias. Bones and chest wall: No axillary adenopathy by size criteria. Thyroid gland negative. No suspicious bony lesions. No vertebral body compression fractures. ABDOMEN: Vasculature: Celiac trunk and mesenteric arteries are patent. Renal arteries are also patent. Solid organs: Liver and spleen are normal in size. Gallbladder contains innumerable gravel-like calculi and cholesterol calculi. There may also be gallbladder sludge Possible gallbladder wall thickening although not well seen large amount of intraluminal contents. No pericholecystic fluid or edema.. Biliary system is non dilated. Pancreas enhances normally. No adrenal nodules. Both kidneys are normal in size and enhancement, without hydronephrosis. Peritoneum and bowel: No free fluid or air. The stomach and proximal duodenum are markedly distended Bowel loops are normal in caliber and wall thickness. Nodes and vessels: No retroperitoneal or mesenteric adenopathy by size criteria. Inferior vena cava is normal in morphology. Bones: No suspicious bony lesions. No vertebral body compression fractures. Miscellaneous: No ventral hernias. IMPRESSION: No aortic dissection or aneurysm. Gallbladder filled with calculi, and possibly sludge. No definite pericholecystic fluid or biliary ductal dilatation. Recommend clinical correlation and with LFTs to exclude acute cholecystitis. Distended stomach and proximal duodenum. Dictated by: Onel Parish M.D. on 07/10/2016 at 19:54 Approved by: Onel Parish M.D. on 07/10/2016 at 20:01 Date of Service: 07/10/161910 PROCEDURE: CT BRAIN (TPA) INDICATIONS: Stroke TECHNIQUE: Noncontrast 4.5 mm thick angled axial sections acquired from the foramen magnum to the vertex, with coronal reformats. COMPARISON: None. FINDINGS: Image quality: Excellent. CSF spaces: Basal cisterns are patent. No extra-axial fluid collections. Ventricles are normal in size and shape. Brain: No midline shift. No intracranial masses or hemorrhage. Henry-white matter interface is normal. Skull and face: Calvarium and visualized facial bones are intact, without suspicious lesions. Sinuses: Visualized sinuses and mastoids are clear. IMPRESSION: No acute intracranial process This study fulfills neurological imaging criteria for inclusion or exclusion of acute stroke therapies based on available published neurological imaging guidelines. Dictated by: Onel Parish M.D. on 07/10/2016 at 19:23 Approved by: Onel Parish M.D. on 07/10/2016 at 19:26 Assessment & Plan Tammy is a 40 y/o 4 [place]ij[place] speaking F with a hx of poorly controlled HTN (not currently on blood pressure medication) who presented with left-sided upper extremity numbness and tingling and weakness with associated slurred speech lasting approximately 30 minutes and acute onset epigastric/right upper quadrant persistent abdominal pain onset 7 PM on 07/10/2016 after eating a greasy meal. Patient was admitted to the hospital for TIA workup. 1. CVA versus TIA: Workup including MRI of the brain which showed a flair hyperintensity in the right frontal paraventricular white matter. Differential diagnoses include chronic small vessel ischemia versus a demyelinating process such as multiple sclerosis. Neurology follow-up as outpatient and possible repeat MRI and 4 weeks. Patient has no neurological deficit and I think this is an incidental finding. MRI showed no acute ischemia. Echocardiogram is negative 2. Acute cholelithiasis : CT scan show gallbladder sludge and multiple stone. No evidence of infection. Ultrasound show cholelithiasis and the hepatic steatosis. 3. Elevated LFT: Liver enzyme trending down. Ultrasound show cholelithiasis. Surgery consulted for advice regarding cholecystectomy. Pain Evaluation: Adequate Pain Control VTE Prophylaxis: Sub-Q Heparin (Unfractionated) VTE Mechanical Devices: Intermittant Pneumatic CD Resuscitation Status: CPR: Attempt Resuscitation Time spent 25 minutes Jt Waite MD Jul 12, 2016 09:00
--- NOTE | 2016-07-12 12:38 | PCM.DIMED ---
Discharge Instructions Date of Service Jul 12, 2016 Dates of Hospitalization Jul 10, 2016 at 21:41 Discharge Diagnosis Discharge Diagnosis Elevated liver enzyme, cholelithiasis, questionable TIA Diet No restrictions Activity No restrictions Call your provider Fever or Chills, Chest pain, Weakness (unilateral) Patient Instructions Follow-up as outpatient neurology within 2 weeks. Repeat MRI of the brain in 4 weeks for follow-up. The liver function tests as outpatient in 5 day with primary care doctor. Follow-up as outpatient surgery in 4 weeks for elective cholecystectomy Follow-up with PCP in: 1 week Jt Waite MD Jul 12, 2016 12:38
[2016-07-12] MEDS ORDERED: Aspirin-Expunged Drug, Do Not Renew! PO (12:39)
--- NOTE | 2016-07-12 12:42 | PCM.DC.MED ---
Discharge Summary Date of Service Jul 12, 2016 Dates of Hospitalization Date of Hospital Admission Jul 10, 2016 at 21:41 Date of Discharge: Jul 12, 2016 Providers: Admitting Physician: Michi Monet MD [facility] Attending Physician: Michi Monet MD Diagnosis at Time of Discharge Diagnosis at Time of Discharge Elevated liver enzyme, cholelithiasis, questionable TIA Consultations General surgery : No intervention at this time. Follow-up as outpatient for possible elective cholecystectomy Procedures XRay, CTs & MRIs Date of Service: 07/10/161922 PROCEDURE: CT ANG CHEST/ABD W/WO CONTRAST INDICATIONS: left neuro deficit + chest pain FINDINGS: AORTA: Normal. No evidence of aneurysm or dissection. No periaortic hematoma. CHEST: Lungs and pleura: No acute airspace opacities. No pleural effusions or pneumothorax. Central and peripheral airways are patent and normal in caliber. Mediastinum: Heart size is normal. No pericardial effusion. No mediastinal or hilar adenopathy by size criteria. Central pulmonary arteries are normal in size. Esophagus is normal in caliber. No hiatal hernias. Bones and chest wall: No axillary adenopathy by size criteria. Thyroid gland negative. No suspicious bony lesions. No vertebral body compression fractures. ABDOMEN: Vasculature: Celiac trunk and mesenteric arteries are patent. Renal arteries are also patent. Solid organs: Liver and spleen are normal in size. Gallbladder contains innumerable gravel-like calculi and cholesterol calculi. There may also be gallbladder sludge Possible gallbladder wall thickening although not well seen large amount of intraluminal contents. No pericholecystic fluid or edema.. Biliary system is non dilated. Pancreas enhances normally. No adrenal nodules. Both kidneys are normal in size and enhancement, without hydronephrosis. Peritoneum and bowel: No free fluid or air. The stomach and proximal duodenum are markedly distended Bowel loops are normal in caliber and wall thickness. Nodes and vessels: No retroperitoneal or mesenteric adenopathy by size criteria. Inferior vena cava is normal in morphology. Bones: No suspicious bony lesions. No vertebral body compression fractures. Miscellaneous: No ventral hernias. IMPRESSION: No aortic dissection or aneurysm. Gallbladder filled with calculi, and possibly sludge. No definite pericholecystic fluid or biliary ductal dilatation. Recommend clinical correlation and with LFTs to exclude acute cholecystitis. Distended stomach and proximal duodenum. Dictated by: Onel Parish M.D. on 07/10/2016 at 19:54 Approved by: Onel Parish M.D. on 07/10/2016 at 20:01 Date of Service: 07/10/161910 PROCEDURE: CT BRAIN (TPA) INDICATIONS: Stroke TECHNIQUE: Noncontrast 4.5 mm thick angled axial sections acquired from the foramen magnum to the vertex, with coronal reformats. COMPARISON: None. FINDINGS: Image quality: Excellent. CSF spaces: Basal cisterns are patent. No extra-axial fluid collections. Ventricles are normal in size and shape. Brain: No midline shift. No intracranial masses or hemorrhage. Henry-white matter interface is normal. Skull and face: Calvarium and visualized facial bones are intact, without suspicious lesions. Sinuses: Visualized sinuses and mastoids are clear. IMPRESSION: No acute intracranial process This study fulfills neurological imaging criteria for inclusion or exclusion of acute stroke therapies based on available published neurological imaging guidelines. Dictated by: Onel Parish M.D. on 07/10/2016 at 19:23 Approved by: Onel Parish M.D. on 07/10/2016 at 19:26 Invasive Procedures None Brief History Tammy is a 40 y/o 4 Zimbabwean speaking F with a hx of poorly controlled HTN (not currently on blood pressure medication) who presented to the ED with acute onset dysarthria and left-sided weakness about 7 PM on 07/10/2016. Associated symptoms included acute persistent abdominal pain. Patient states she was eating a greasy meal during dinnertime when she began to have epigastric abdominal pain that she describes as sharp 10 out of 10 onset approximately 4 hours ago. Patient described left upper extremity numbness and tingling especially in the hand with associated weakness lasting approximately 30 minutes now resolved. Patient describes slurred speech lasting approximately 30 minutes now resolved. Patient reportedly had difficulty eating her food at that time. Patient reports that she vomited once when in the ED. She endorses dizziness and weakness when standing to walk. Patient had CT chest and abdomen which showed gallbladder calculi. Patient's LFTs were elevated at ALT 59, AST 103. Associated symptoms included numbness of bilateral upper extremities, focal weakness of the left side, slurred speech , chest tightness, nausea, vomiting, and shortness of breath. She denies ever having experienced any of the symptoms of abdominal pain or weakness/slurred speech prior to today, denied fever, chills, vision change, diarrhea, constipation, sick contacts, travel. In the ED NIH stroke scale was 3 for facial palsy, left arm motor drift, and failure to identify month/age. EKG showed normal sinus rhythm, with a rate of 80, QT of 377, QTC of 435, no ST/ T-wave changes or upper allergies. CT angiogram chest and abdomen showed: No aortic dissection or aneurysm. Gallbladder filled with calculi, and possibly sludge. No definite pericholecystic fluid or biliary ductal dilatation. Recommend clinical correlation and with LFTs to exclude acute cholecystitis. Distended stomach and proximal duodenum. CT brain showed: No acute intracranial process Vital signs in ED: Temperature 36.1, pulse 79, pressure 122/60, respiratory rate 18, 100% room air. Hemogram: Leukocytes 50.2H, blood cell count 7.2, hemoglobin 12.6, hematocrit 37.5, platelets 212. Chemistry panel: Sodium 138, potassium 3.1, chloride 102, CO2 21, BUN 22, creatinine 0.59, glucose 139, calcium 8.4, AST 103 H, ALT 59 H, alkaline phosphatase 80, troponin 0.10. Hospital Course Tammy is a 40 y/o 4 [place]an speaking F with a hx of poorly controlled HTN (not currently on blood pressure medication) who presented with left-sided upper extremity numbness and tingling and weakness with associated slurred speech lasting approximately 30 minutes and acute onset epigastric/right upper quadrant persistent abdominal pain onset 7 PM on 07/10/2016 after eating a greasy meal. Patient was admitted to the hospital for TIA workup. 1. CVA versus TIA: Workup including MRI of the brain which showed a flair hyperintensity in the right frontal paraventricular white matter. Differential diagnoses include chronic small vessel ischemia versus a demyelinating process such as multiple sclerosis. Neurology follow-up as outpatient and possible repeat MRI and 4 weeks. Patient has no neurological deficit and I think this is an incidental finding. MRI showed no acute ischemia. Echocardiogram is negative 2. Acute cholelithiasis : CT scan show gallbladder sludge and multiple stone. No evidence of infection. Ultrasound show cholelithiasis and the hepatic steatosis. 3. Elevated LFT: Liver enzyme trending down. Ultrasound show cholelithiasis. Surgery consulted for advice regarding cholecystectomy. Patient was indicated to follow as outpatient for elective cholecystectomy. The liver enzyme as outpatient with primary care doctor in 5 days Exam Vital Signs (Last) Date Time Temp Pulse Resp B/P Pulse Ox O2 Delivery O2 Flow Rate FiO2 07/12/16 05:39 36.7 68 16 129/69 98 Room Air Exam General: Well-nourished female. nad Neck supple no JVD, no carotid bruit Chest: Normal respiratory effort, no chest wall tenderness Long: long clear bilaterally , no wheezing, no crackle Heart regular rate and rhythm no gallop or murmur Abdomen: Soft nontender .No epigastric tenderness. No palpable mass Extremity: No edema, no cyanosis, no calf tenderness Neuro: nonfocal. AAO x 3 Test 07/10/16 17:20 07/10/16 21:15 07/11/16 05:27 07/12/16 05:45 Hold Purple Top Tube Received (Received) Prothrombin Time 10.1sec (8.1-12.5) Prothromb Time International Ratio 0.95ratio Activated Partial Thromboplast Time 22.5sec (22.8-33.0) Hold Blue Top Tube Received (Received) Troponin T < 0.010ug/L (0.0-0.011) Hold Red Top Tube Received (Received) Hold Rolla Top Tube Received (Received) Hold Muse Top Tube Received (Received) Urine Color Yellow (YELLOW) Urine Appearance Clear (CLEAR,HAZY) Urine pH 7.5 (5.0-8.0) Urine Specific [place] 1.010 (1.003-1.035) Urine Protein Negativemg/dL (NEG,TRACE) Urine Glucose (UA) Negativemg/dL (NEGATIVE) Urine Ketones Negativemg/dL (NEGATIVE) Urine Occult Blood Large (NEGATIVE) Urine Nitrite Negative (NEGATIVE) Urine Bilirubin Negative (NEGATIVE) Urine Urobilinogen Normalmg/dL (NORMAL) Urine Leukocyte Esterase Negative (NEGATIVE) Urine RBC >50/hpf (0-2) Urine WBC 0-5/hpf (0-5) Urine Epithelial Cells Occasional/hpf (NONE-MOD) Urine Crystals None seen (NONE SEEN) Urine Bacteria None/hpf (NONE-FEW) Urine Hyaline Casts None/lpf (NONE) Urine Granular Casts None seen (NONE SEEN) Urine Waxy Casts None seen (NONE SEEN) Urine Red Blood Cell Casts None seen (NONE SEEN) Urine White Blood Cell Casts None seen (NONE SEEN) Urine Mucus None seen (None Seen) Urine Trichomonas None seen (NONE SEEN) Urine Yeast None (NONE SEEN) Urine Culture Reflexed Not indicated Neutrophils (%) (Auto) 61.3% (40-74) Lymphocytes (%) (Auto) 29.8% (14-46) Monocytes (%) (Auto) 7.1% (4-12) Eosinophils (%) (Auto) 1.0% (0-5) Basophils (%) (Auto) 0.6% (0-3) Hemoglobin A1c 5.7% (4.8-5.6) Magnesium Level 2.1mg/dL (1.6-2.6) Direct Bilirubin 0.2mg/dL (0.0-0.3) Lipase 30U/L (13-60) White Blood Count 4.3th/mm3 (3.8-10.1) Red Blood Count 4.38mil/mm3 (3.90-5.20) Hemoglobin 12.0g/dL (12.0-15.6) Hematocrit 36.9% (35.0-46.0) Mean Corpuscular Volume 84.2fL (81-100) Mean Corpuscular Hemoglobin 27.4pg (27.0-35.0) Mean Corpuscular Hemoglobin Concent 32.5% (32.0-37.0) Red Cell Distribution Width 13.4% (12.3-15.4) Platelet Count 206bil/L (150-400) Sodium Level 141mEq/L (134-144) Potassium Level 3.7mEq/L (3.5-5.2) Chloride Level 107mEq/L (97-108) Carbon Dioxide Level 25mmol/L (18-29) Blood Urea Nitrogen 15mg/dL (6-20) Creatinine 0.61mg/dL (0.57-1.00) Estimat Glomerular Filtration Rate 156mL/min (>59) Glucose Level 98mg/dL (60-99) Calcium Level 8.3mg/dL (8.5-10.1) Total Bilirubin 0.3mg/dL (0.0-1.2) Aspartate Amino Transf (AST/SGOT) 80U/L (0-50) Alanine Aminotransferase (ALT/SGPT) 218U/L (0-32) Alkaline Phosphatase 93U/L (25-150) Total Protein 6.1g/dL (6.4-8.4) Albumin 3.7g/dL (3.4-5.0) Discharge Medications Discharge Medications ([Aspirin-Expunged Drug, Do Not Renew!]) 325 MG TABLET 81 MG PO DAILY Prescribed by: DORIS WAITE MD Followup Plan Discharge Diet: No restrictions Discharge Activity: No restrictions Patient Instructions Follow-up as outpatient neurology within 2 weeks. Repeat MRI of the brain in 4 weeks for follow-up. The liver function tests as outpatient in 5 day with primary care doctor. Follow-up as outpatient surgery in 4 weeks for elective cholecystectomy Follow-up with PCP in: 1 week Doris Waite MD Jul 12, 2016 12:42
[2016-07-12 13:10] VITALS: BP 121/77; PULSE 61; RESP 16; O2SAT 98
--- NOTE | 2016-07-12 13:19 | NUR ---
Social Work-discharge: Data:EMR Reviewed. Pt is on day 2 of hospitalization for TIA per H&P. Pt is medically stable to discharge today. PT/ST/OT have cleared pt for home with outpt services. No discharge needs identified. Pt's family to provide transport home. No discharge needs identified. All updated and agreeable to plan. Assessment:pt who is independent at baseline. Plan:Pt to discharge home today via POV. No discharge needs identified. All updated and agreeable to plan. ROGE Loyola
--- NOTE | 2016-07-12 14:10 | CONS ---
[address] [address] CONSULTATION REPORT PATIENT: ADDIS SAUCEDO : 1975 MR#: [id number] ADMIT: 07/10/2016 JOB ID: [id number] DATE OF SERVICE: 07/12/2016 SURGICAL CONSULTATION: CHIEF COMPLAINT/IDENTIFICATION: DrJason has requested a General Surgery consultation regarding patient's possible gallbladder disease. HISTORY OF PRESENT ILLNESS: A 40-year-old woman who does not have a primary care provider who presented on July 10 with symptoms most consistent with a TIA consisting of left upper extremity numbness and tingling and associated weakness with some slurred speech following the onset of a mid abdominal pain that began after eating a steak meal. She has never had this sort of pain before. She has never had neurologic symptoms before. According to a chart, her neurologic symptoms have all resolved and the differential diagnosis includes chronic small-vessel ischemia versus a demyelinating process such as multiple sclerosis. The plan is for neurology follow up as an outpatient and possible repeat MRI. Workup also included a chest and abdominal CT that demonstrated gallstones with no sign of acute cholecystitis and she then had an abdominal ultrasound that demonstrated cholelithiasis without evidence of cholecystitis, but also with associated hepatic steatosis. Notably the patient through her son as an broadcast operations manager tells me that she has never had this pain before after eating, that she has no history of jaundice, tea-colored urine, or acholic stools, and currently is free of abdominal pain and had a regular breakfast without problems. PAST MEDICAL HISTORY: Poorly controlled hypertension. MEDICATIONS: Prior to admission none. ALLERGIES: None. SOCIAL HISTORY: Negative tobacco. Negative for daily alcohol, lives with a boyfriend. REVIEW OF SYSTEMS: Noncontributory. PHYSICAL EXAMINATION: She is afebrile. Pulse is in the 60s. Blood pressure is 129/69. She has no significant right upper quadrant tenderness. To my examination, she is not jaundiced. LABORATORY DATA: Show a normal white count, hematocrit of 37. Liver function tests that are mildly abnormal with an admission AST and ALT of 103 and 59 going up into the mid 300s on July 11 and now coming down. Alk phos and bilirubin and albumin have all been normal. Lipase is 30. IMPRESSION AND PLAN: A 40-year-old woman with poorly controlled hypertension and possible TIA versus demyelinating disease with gallstones that may have been the precipitating factor of her abdominal pain the other day. However, at this point, she does not have any signs or symptoms consistent with acute cholecystitis, by history this was the only attack that she has had and her LFT abnormalities are consistent with her steatosis. My recommendation would be to let her go home and follow up with her neurologist. She also needs to have a primary care provider who she can followup with. If she has any further episodes of postprandial pain suggestive of chronic biliary colic, she should be seen at [facility] for consideration of an elective laparoscopic cholecystectomy. At this point, I think given the fact that her neurologic symptoms just happened within the past 72 hours and that the underlying etiology remains unclear, that it would be precipitous to take her to the operating room this hospitalization for a cholecystectomy for borderline indications. General Surgery will sign off as I am told she will be discharged later today.
--- NOTE | 2016-07-12 16:05 | NUR ---
Discharge Pt discharged to home - paperwork gone over with pt. Representative Phlebotomy Services present for dc instructions. Pt instructed to call son and stated he will be here within ~20mins. A&Ox3, SANDRA, RODERICK, No pain, IV dc'd by prior to dc, No tele, Hard copy script provided to pt, CareNotes provided on dc dx and new medication, No unanswered questions/concerns, Pt has all personal belongings with her in room. Awaiting pt ride. Addendum: 07/12/16 at 1614 by ANG ESTES RN Pt walked off unit to vehicle with son. All personal belongings in hand.
[2016-07-13 04:08] LABS: Hepatitis A Antibody IgM Negative (Negative); Hepatitis B Core Antibody IgM Negative (Negative)
[2016-08-01] MEDS ORDERED: POLY17PO6 PO (09:22)
[2016-08-01] MEDS ORDERED: OXYC5TAB72 PO (09:22)
== END 2016-07-12 15:50 | disposition home or self-care (01) | DRG 445 ==
LOC: SED 19:08 → OSC 21:41 → OBSVTOIN 21:41
PROVIDERS: ADMIT Hospitalist; ATTEND Hospitalist
PROC: 3E0234Z Introduction of Serum, Toxoid and Vaccine into Muscle, Percutaneous Approach (ICD-10-PCS; principal; 2016-07-12)
DX: K80.20 Calculus of gallbladder without cholecystitis without obstruction (principal); G45.9 Transient cerebral ischemic attack, unspecified; E86.0 Dehydration; I10 Essential (primary) hypertension; R47.1 Dysarthria and anarthria; Z23 Encounter for immunization

== ENCOUNTER 2016-08-01 10:38 | Day surgery (SDC) | payer OTHER ==
[~2016-08-01] VITALS: Ht 152.4 cm; Wt 56.7 kg
[2016-08-01] VITALS (11 sets, daily range): BP systolic 91–118; BP diastolic 51–80; PULSE 59–89; RESP 11–20; O2SAT 98–100
[~2016-08-01 10:38] MED LIST: Levofloxacin 500 mg/100 mL D5W IV ONE; OXYC5TAB72 PO; POLY17PO6 PO; Polyethylene Glycol (PEG) 17 Gm Powder PO SCH
[2016-08-01] MEDS ORDERED: Dexamethasone 4 mg/mL Inj ONE (10:39)
[2016-08-01] MEDS ORDERED: Rocuronium 10 mg/mL 5 mL Inj ONE (10:39)
[2016-08-01] MEDS ORDERED: Neostigmine 1 mg/mL 10 mL Inj ONE (10:39)
[2016-08-01] MEDS ORDERED: Ondansetron 2 mg/mL 2 mL Inj ONE (10:39)
[2016-08-01] MEDS ORDERED: Propofol 10,000 mCg/mL 20 mL Inj ONE (10:39)
[2016-08-01] MEDS ORDERED: fentaNYL-PF 50 mCg/mL 2 mL Inj ONE (10:39)
[2016-08-01] MEDS ORDERED: Lactated Ringer's 1,000 ML IV ONE ×2 (11:28→11:34)
[2016-08-01] MEDS ORDERED: ASPI-973 PO (11:30)
[2016-08-01] MEDS ORDERED: levoFLOXacin 500 mg/100 mL D5W Premix IV ONE (11:35)
--- NOTE | 2016-08-01 11:35 | PCM.HPANE ---
Patient Data Surgeon Admitting Provider: Attending Provider:Renard Mandujano MD Primary Care Physician:Banner Other Provider:Jen Bullock Anesthesia Reason for Visit Cholecystitis Ht/WT & BMI Height (Feet): 5 Height (Inches): 0 Weight (Kilograms): 56.7 Body Mass Index 24.00 Allergies Coded Allergies: No Known Allergies (Verified , 07/29/16) Past Anesthesia History Anesthesia History: Denies:: Anesthesia Reactions Diabetes History Hx Diabetes?: No MRSA MRSA: No Medications Hypertension Medication: No Home Meds Incl Beta Jacquelyn: No Active Scripts Polyethylene Glycol 3350 (Miralax)17 Gm Powd.pack17 Gm PO DAILY #30 Prov:Renard Mandujano MD 08/01/16 oxyCODONE 5 Mg Tablet5 Mg PO Q4H PRN For Moderate Pain #30 TABLET Prov:Renard Mandujano MD 08/01/16 Reported Medications Aspirin 81 Mg [id number] Mg PO DAILY Ref 0 08/01/16 Discontinued Scripts [Aspirin] 325 MG TABLET No Conflict Check81 Mg PO DAILY #30 TABLET Prov:Jt Waite MD 07/12/16 History History of ENT Problems?: No Hx of Heart Problems?: No Cardiovascular History: Denies:: Congestive Heart Failure Heart Murmur Hypertension (on no meds ) Hx of Respiratory Problem?: No Respiratory History: Denies:: Asthma COPD Emphysema Oxygen Administration Pneumonia Tuberculosis Use of C-PAP Machine Hx Neurologic Problems?: No Neurological History: Positive for:: TIA (tia admission 06/2016-no current sx, resolution left sided sx) Denies:: CVA Headaches Multiple Sclerosis Parkinson's Disease Other History/Comments Had very transient unilateral UE weakness and slurring of speech leading to admission and negative w/u for stroke or TIA. Findings suggestive of possible MS lesion. No previous or further concerning neuro sx's. When asked about these episodes today she very much minimizes the existence of any neuro sx's and focuses completely on her epigastric pain which was attributed to her GB pathology Hx of GI Problems?: Yes Gastrointestinal History: Positive for:: Gall Bladder Disease (current admission problem) Denies:: Diverticulitis Gastrointestinal Bleeding Heartburn Hiatal Hernia Liver Disease Rectal Bleeding Hx of Problems?: No Genitourinary History: Positive for:: Kidney Stones Denies:: HX of Hemodialysis Urinary Tract Infection HX of Peritoneal Dialysis: No Female Hx: Denies:: Currently (TUBAL LIGATION 2003) Endometriosis Pelvic Inflammatory Problems with Breasts? Skin History: Denies:: History Skin Disorders? Pressure Ulcers Hx Musculoskeletal Problems?: Yes Musculoskeletal History: Positive for:: Back Injury (sometimes back pain) Denies:: Joint Replacement Musculoskeletal Trauma Hx of Psycho/Social Problems?: No Hx Surgeries?: No Hx Any Other Health Problems?: Yes Other History: Denies:: Cancer Thyroid Disease History Blood Transfusions: Denies:: Blood Transfusions Hx Diabetes: No Hx Alcohol Use: NoHx Substance Use: No Smoking Status: Never Smoker Have You Smoked inLast 12 mo: No Stop/Bang P-Blood Pressure: treated: No B- Body Mass Index > 35 kg/m2: No A- Age over 50: No N- Neck Large Circumference: No G- Gender Male: No Risk Assessment Category Category 1A: Patient has history of documented sleep apnea, and HAS NOT received any narcotic, sedative or anesthesia administration during this stay. Category 1B: Patient has history of documented sleep apnea, and HAS received any narcotic , sedative or anesthesia administration during this stay Category 2: Patient has SUSPECTED Obstructive Sleep Apnea, and HAS received any narcotic , sedative or anesthesia administration during this stay. Category 3: Patient has SUSPECTED Obstructive Sleep Apnea and HAS NOT received narcotic, sedative or anesthesia administration during this stay. Category 4: Outpatient in Procedural Areas with known sleep apnea or who screen positive for High Risk via the STOP/BANG questionnaire. Exam Exam Vital Signs Vital Signs Date Time Temp Pulse Resp B/P Pulse Ox O2 Delivery O2 Flow Rate FiO2 08/01/16 10:57 35.9 59 12 104/79 100 Room Air General Appearance: Alert, Oriented X3 HEENT/AIRWAY: MP 2, Neck Movement (FROM) Lungs: Clear to Auscultation, Clear to Percussion Heart: Exam Unremarkable, Regular Rate/Rhythm Meds/Labs/Diagnostics Admission Meds Current Medications Lactated Ringer's (Lr) 1,000 ml @ ud STK-MED ONCE IV Last administered on t 11:28; Start 08/01/16 at 11:28; Stop 08/01/16 at 11:29; Status DC Plan Impression Patient chart reviewed, patient interviewed and anesthestic plan with risks, benefits, and alternatives discussed, and informed consent obtained. NPO Status: 08/01 1999 ASA Physical Status: ASA2 Mod Systemic Disease Anesthetic Plan: GA Bene/Risks/Altern/Consents: Yes HP Complete Prior to Induction: Yes Brenden Jaimes MD Aug 01, 2016 11:34
[2016-08-01] MEDS ORDERED: Bupivacaine-MPF 0.5% 30 mL Inj INFILTRATE ONE (12:23)
[2016-08-01] MEDS ORDERED: Iopamidol-300 50 mL Inj IV ONE (12:23)
[2016-08-01] MEDS ORDERED: Lactated Ringer's 1,000 ML IV SCH (12:37)
[2016-08-01] MEDS ORDERED: Lactated Ringer's 500 ML IV PRN (12:37)
[2016-08-01] MEDS ORDERED: Ondansetron 2 mg/mL 2 mL Inj IVPUSH PRN (12:40)
[2016-08-01] MEDS ORDERED: Labetalol 5 mg/mL 4 mL Inj IV PRN (12:40)
[2016-08-01] MEDS ORDERED: Atropine 0.4 mg/mL Inj IVPUSH PRN (12:40)
[2016-08-01] MEDS ORDERED: Phenylephrine 10,000 mCg/mL Inj IVPUSH PRN (12:40)
[2016-08-01] MEDS ORDERED: EPHEDrine Sulfate 50 mg/mL Inj IVPUSH PRN (12:40)
[2016-08-01] MEDS ORDERED: MetoCLOpramide 5 mg/mL 2 mL Inj IVPUSH PRN (12:40)
--- NOTE | 2016-08-01 14:01 | PCM.SURGPO ---
Immediate Operative Note Date of Surgery: Aug 01, 2016 Pre Operative Diagnosis Cholelithiasis Post Operative Diagnosis Cholelithiasis Procedure Laparoscopic Cholecystectomy with cholangiogram Surgeon and Management Liaison Surgeon: Renard Mandujano MD Assistants: [place] ANNA, Angelica Alfaro MS3 Findings Cholelithiasis, Normal Cholangiogram Complications There were no periprocedural complications identified. Surgical Specimen Removed: Yes Specimen sent to Pathology: Yes Surgical Specimen description: Gallbladder with stones Anesthetic Administered: GA Grafts, Implants: None Output, Estimated Blood Loss: 5 Blood Admin during surgery: No Attending Statement Supervisor Pile Driving Listed was medically necessary for the successful completion of the case Renard Mandujano MD Aug 01, 2016 14:01
--- NOTE | 2016-08-01 14:19 | DRSVH ---
PROCEDURE: X-RAY OPERATIVE CHOLANGIOGRAM ([id number]) INDICATIONS: CHOLECYSTITIS COMPARISON: [facility], US, US ABDOMEN, 07/11/2016, 17:20. FINDINGS: Biliary ducts: The surgeon injected contrast into the biliary ducts after cannulation of the cystic duct stump. Visualized intra- and extrahepatic bile ducts are normal in caliber, without strictures. No intraluminal filling defects to suggest retained ductal stones or sludge. No evidence for iatro genic ductal injury. Duodenum: Contrast flows promptly through the sphincter of Oddi into the duodenum, which appears nor mal in caliber. IMPRESSION: Normal operative cholangiogram. Dictated by: Lv Palacios [facility] Interpreted: Anna Denis MD on 08/01/2016 at 14:19 Transcribed by: FAITH on 08/01/2016 at 14:19 Approved by: Anna Denis MD, PhD on 08/01/2016 at 16:35
--- NOTE | 2016-08-01 14:21 | PCM.ANEP1 ---
Post Anesthesia Phase 1 PACU Phase 1 Assessment Date of Service: Aug 01, 2016 Vital Signs Vital Signs Date Time Temp Pulse Resp B/P Pulse Ox O2 Delivery O2 Flow Rate FiO2 08/01/16 14:15 36.6 89 11 103/55 100 Simple Mask 8 08/01/16 10:57 35.9 59 12 104/79 100 Room Air Anesthetic Administered: GA Level of Alertness: Awake, talking FLORES's with Equal Strength: Yes Pain: No Nausea or Vomiting: No Oxygen Delivery: Simple Mask Lungs: Clear to Auscultation, Clear to Percussion Summary See anesth record for pacu vs. pacu vss Brenden Jaimes MD Aug 01, 2016 14:21
--- NOTE | 2016-08-01 14:21 | PCM.ANEP2 ---
Post Anesthesia Evaluation ASA/CMS Post Anesthesia VS in Patient's Normal Range?: Yes Resp Stable; Airway Patent?: Yes CV Function & Hydration Stable: Yes Mental Status Recovered?: Yes Pain control Satisfactory?: Yes N/V Control Satisfactory?: Yes Brenden Jaimes MD Aug 01, 2016 14:21
[2016-08-01] MEDS: HYDROmorphone 1 mg/mL Inj IVPUSH PRN ×2 (14:43→14:52)
[2016-08-01] MEDS: fentaNYL-PF 50 mCg/mL 2 mL Inj IVPUSH PRN ×2 (14:43→14:52)
--- NOTE | 2016-08-01 16:30 | OP ---
[address] [address] OPERATIVE REPORT PATIENT: ADDIS ROSEN : 1975 MR#: [id number] ADMIT: 08/01/2016 JOB ID: [id number] DATE OF SURGERY: 08/01/2016 PREOPERATIVE DIAGNOSIS(ES): Cholelithiasis. POSTOPERATIVE DIAGNOSIS(ES): Cholelithiasis. PROCEDURE PERFORMED: Laparoscopic cholecystectomy with intraoperative cholangiogram. SURGEON: Renard Mandujano MD. INSPECTOR FIBROUS WALLBOARD: Elmira Ruiz PA-C, and CALVIN Smith. INDICATIONS: The patient is a 40-year-old lady who presented to [facility] emergency department on July 10, 2016, with severe upper abdominal and chest pain and numbness on the left side of the body. She was initially thought to be having a stroke from uncontrolled hypertension but CT angiogram of the chest/abdomen, CT brain, brain MRI did not show any evidence of acute neurologic abnormalities. She was discharged with a diagnosis of cholelithiasis with abnormal liver function studies and possible transient ischemic attack. She continued to have abdominal pain every time after she ate, after that prompting Dr. Alford to refer her for surgical consultation. She presents today for laparoscopic cholecystectomy with intraoperative cholangiogram. PROCEDURE DETAILS: She was placed in supine position, underwent smooth induction of general anesthesia. Abdomen was prepped and draped in the usual sterile fashion. Surgical time-out was undertaken using safety checklist and all were in agreement. I began by making an infraumbilical incision and entered the abdomen using open Steven technique and Optiview trocar. After obtaining pneumoperitoneum, placed three 5 mm ports, one in the epigastrium and two in the right upper quadrant and upsized the umbilical port to a 12. We then retracted the gallbladder cephalad and to the right and dissected the triangle of Calot anteriorly and posteriorly and clipped the cystic artery and divided it. After that, I clipped the cystic duct towards the specimen and obtained a cholangiogram which showed normal anatomy with no filling defects with good flow of contrast into the duodenum. I then clipped the cystic duct doubly on the patient's side and divided it and dissected the gallbladder off the liver bed with good hemostasis. After that, I placed the gallbladder in an EndoCatch bag and had to enlarge the umbilical fascial incision to extract the gallbladder with large stones in it. After making sure all fluid was removed from the right upper quadrant and that we had good hemostasis, the umbilical site fascia was closed with running 0 PDS suture. The skin was reapproximated with 4-0 Monocryl. Steri-Strips and sterile dressing were applied. Patient was recovered from anesthesia and was taken to the recovery room in a stable condition.
[2016-08-02] MEDS ORDERED: ONDA4TAB9 PO (22:00)
--- NOTE | 2016-08-03 14:17 | PATH ---
SURGICAL PATHOLOGY Attending Physician:Renard Mandujano MD CASE STATUS: Signed Out PATIENT NAME: ADDIS ROSEN PID: [id number] : 1975 DATE COLLECTED:08/01/2016 00:00 SPECIMEN: Gallbladder CLINICAL HISTORY: CHOLELITHIASIS 1). GALLBLADDER FINAL DIAGNOSIS: Gallbladder: Cholelithiasis with associated chronic cholecystitis. ICD10: K80.66 GROSS DESCRIPTION: The specimen is received in one formalin filled container labeled with the patient's name, sublabeled "gallbladder" and consists of an opened 10.0 x 4.0 x 4.0 CM gallbladder. The serosa is smooth. The wall is 0.1-0.3 CM in thickness. The mucosa is a light green ríos in color. The lumen contains 50-60 green ríos to green-black irregular shaped calculi which range in size from 0.1-2.0 CM. 5 promotional representative sections are submitted in one cassette. 08/02/2016 [facility] ICD-9 CODES: CPT CODES: 1: 71517 Electronically Signed Out López Vaughan MD [facility] [address], [place] [address] Technical component performed at [facility], [facility] [address], [address]
== END 2016-08-01 23:59 | disposition home or self-care (01) ==
LOC: SAS 10:38
PROVIDERS: ATTEND Student in an Organized Health Care Education/Training Program
DX: K80.10 Calculus of gallbladder with chronic cholecystitis without obstruction (principal); I10 Essential (primary) hypertension
CPT/HCPCS: 47563; 74300; J1100; J1170; J2405; J2710; J3010; J7120; Q9967

== ENCOUNTER 2016-08-02 18:59 | Emergency (ER) | payer OTHER ==
[~2016-08-02] VITALS: Ht 152.4 cm; Wt 57.7 kg
[~2016-08-02 18:59] MED LIST changes: +ASPI-973 PO; -Levofloxacin 500 mg/100 mL D5W IV ONE; -Polyethylene Glycol (PEG) 17 Gm Powder PO SCH
[2016-08-02 19:04] VITALS: BP 92/59; PULSE 61; RESP 15; O2SAT 100
[2016-08-02] MEDS ORDERED: 0.9% Sodium Chloride 1,000 ML IV ONE (20:07)
--- NOTE | 2016-08-02 20:09 | ED.REPORT ---
HPI-General Illness Date of Service Aug 02, 2016 ED Provider: Nathan Flores MD 40 year old Czech-speaking female presents to the ER accompanied by her and son who translates, complaining of low abdominal pain status post cholecystectomy yesterday. Associated symptoms include nausea, and dizziness onset several hours ago that she attributes to her pain medication. Patient denies fever, vomiting, SOB, difficulty breathing, hematochezia, and dysuria. Currently she is taking oxycodone every 4 hours for pain. Nursing Notes Stated Complaint: DIZZY, SENT FROM Chief Complaint: Female Abdominal Pain Nursing Notes Reviewed: Yes Allergies: Coded Allergies: No Known Allergies (Verified , 07/29/16) Scheduled Aspirin (Aspirin) 81 Mg Tablet 81 MG PO DAILY Polyethylene Glycol 3350 (Miralax) 17 Gm Powd.pack 17 GM PO DAILY Scheduled PRN Ondansetron ODT (Zofran ODT) 4 Mg Tablet 4 MG PO Q4H PRN PRN For Nausea oxyCODONE (oxyCODONE) 5 Mg Tablet 5 MG PO Q4H PRN PRN For Moderate Pain General Time Seen by MD: 20:02 Chief Complaint Abdominal pain Hx Obtained From: Patient, Spouse Arrived By: Walk-in Sudden in Onset?: No Onset Occurred: Yesterday Symptom Duration: Since onset Location: : Abdomen Quality: Painful Severity: Current: Moderate Severity: Maximum: Severe Associated with: Reports: Dizziness, Nausea, Denies: Cough, Shortness of breath Pertinent Negative: Pt denies other symptoms Similar Sx Previous: No Past Medical History Past Medical History Hypertension - uncontrolled Past Surgical History Reports: Cholecystectomy Smoking History Never Smoker Social History Alcohol Use: Denies alcohol use Other Social History: Good social support Ambulatory Status Independent Review of Systems Full Review of Systems Constitutional: Denies: Chills, Fever Respiratory: Denies: Non-productive cough, Shortness of breath GI: Reports: Abdominal pain, Nausea, Denies: Hematemesis, Hematochezia, Vomiting Female: Denies: Dysuria Neurologic: Reports: Dizziness Complete sys rev & neg: except as marked. Physical Exam Vital Signs Vital Signs Date Time Temp Pulse Resp B/P Pulse Ox O2 Delivery O2 Flow Rate FiO2 08/02/16 19:04 36.1 61 15 92/59 100 Room Air Initial VS: Reviewed Head / Eyes: Atraumatic, Normocephalic Neck: Supple, Non-tender, Full range of motion Extremities: Vascular intact, Neuro intact, No swelling, No tenderness Skin: Warm, Dry, No cyanosis Neurologic: Alert, Oriented, Nonfocal General/Constitutional: Awake, Alert, Well developed, Well nourished Appearance / Presentation: Positive: In pain, Uncomfortable Respiratory / Chest: Breath sounds NL, No respiratory distress, No rales, No rhonchi, No wheezing Cardiovascular: Heart rate NL, Regular rhythm, Heart sounds NL, Cap refill not delayed, Peripheral circulation NL Abdomen: No guarding, No rebound, No distention Tenderness/Guarding/Rebound: Positive: Tender diffuse Well-healing laprascopic surgical scars. Interpretation & Diagnostics Lab Results Interpretation Result Diagram: 08/02/16 2030 08/02/16 2030 Test 08/02/16 20:30 08/02/16 20:39 White Blood Count 4.1th/mm3 (3.8-10.1) Red Blood Count 4.15mil/mm3 (3.90-5.20) Hemoglobin 11.5g/dL (12.0-15.6) Hematocrit 34.4% (35.0-46.0) Mean Corpuscular Volume 82.9fL (81-100) Mean Corpuscular Hemoglobin 27.7pg (27.0-35.0) Mean Corpuscular Hemoglobin Concent 33.4% (32.0-37.0) Red Cell Distribution Width 13.4% (12.3-15.4) Platelet Count 176bil/L (150-400) Neutrophils (%) (Auto) 54.2% (40-74) Lymphocytes (%) (Auto) 37.6% (14-46) Monocytes (%) (Auto) 6.3% (4-12) Eosinophils (%) (Auto) 1.0% (0-5) Basophils (%) (Auto) 0.7% (0-3) Hold Purple Top Tube Received (Received) Hold Blue Top Tube Received (Received) Urine Color Yellow (YELLOW) Urine Appearance Clear (CLEAR,HAZY) Urine pH 6.5 (5.0-8.0) Urine Specific Mayo 1.010 (1.003-1.035) Urine Protein Negativemg/dL (NEG,TRACE) Urine Glucose (UA) Negativemg/dL (NEGATIVE) Urine Ketones Negativemg/dL (NEGATIVE) Urine Occult Blood Negative (NEGATIVE) Urine Nitrite Negative (NEGATIVE) Urine Bilirubin Negative (NEGATIVE) Urine Urobilinogen Normalmg/dL (NORMAL) Urine Leukocyte Esterase Negative (NEGATIVE) Urine RBC 0-2/hpf (0-2) Urine WBC 0-5/hpf (0-5) Urine Epithelial Cells Few/hpf (NONE-MOD) Urine Crystals None seen (NONE SEEN) Urine Bacteria Few/hpf (NONE-FEW) Urine Hyaline Casts None/lpf (NONE) Urine Granular Casts None seen (NONE SEEN) Urine Waxy Casts None seen (NONE SEEN) Urine Red Blood Cell Casts None seen (NONE SEEN) Urine White Blood Cell Casts None seen (NONE SEEN) Urine Mucus None seen (None Seen) Urine Trichomonas None seen (NONE SEEN) Urine Yeast None (NONE SEEN) Urinalysis Comment None Urine Culture Reflexed Not indicated Sodium Level 137mEq/L (134-144) Potassium Level 3.4mEq/L (3.5-5.2) Chloride Level 103mEq/L (97-108) Carbon Dioxide Level 22mmol/L (18-29) Blood Urea Nitrogen 10mg/dL (6-20) Creatinine 0.69mg/dL (0.57-1.00) Estimat Glomerular Filtration Rate 136mL/min (>59) Glucose Level 116mg/dL (60-99) Calcium Level 8.1mg/dL (8.5-10.1) Magnesium Level 2.1mg/dL (1.6-2.6) Total Bilirubin 0.6mg/dL (0.0-1.2) Aspartate Amino Transf (AST/SGOT) 1054U/L (0-50) Alanine Aminotransferase (ALT/SGPT) 1108U/L (0-32) Alkaline Phosphatase 122U/L (25-150) Total Protein 6.5g/dL (6.4-8.4) Albumin 3.6g/dL (3.4-5.0) Lipase 41U/L (13-60) Hold Stratford Top Tube Received (Received) Hold Muse Top Tube Received (Received) Hold Urine Received (Received) CT Abd / Pelvis Interpretation IMPRESSION: Postoperative changes within the gallbladder fossa and mild scattered intraperitoneal free air, presumably from recent surgery. No abscess seen. Dictated by: Onel Parish M.D. on 08/02/2016 at 21:38 Approved by: Onel Parish M.D. on 08/02/2016 at 21:43 Study type: Abdominal CT IV contrast, Abdom CT oral contrast Interpretation / Wet Read by: Interpret - Radiologist Re-Eval/Medical Decision Med Decision/Clinical Course In summary, the patient is a 40-year-old female who presents the emergency department with vague abdominal pain and nausea after undergoing left discomfort cholecystectomy yesterday. From what I can see this was an uncomplicated surgery. Here in the emergency department the patient is afebrile and nontoxic in appearance reports tenderness diffusely about her abdomen. She is borderline hypotensive with a systolic blood pressure in the 90s over this appears to be her baseline. She is otherwise hemodynamically stable. Laboratory studies were notable as below: UA negative negative CBC normal Hct 34.4 not significantly decreased from baseline CMP markedly elevated transaminases in the 1000s though not unexpected given she is 1 day post-op from fadi Alk phos [facility] CT scan was obtained of the abdomen and pelvis to assess for any evidence of abscess or bleeding or other postoperative complication. There is no evidence thereof. Serial abdominal examinations remained relatively benign. She was treated with Zofran for nausea, hydromorphone for pain and IV fluids. She reported significant improvement. At this time I see no evidence of acute surgical intra-abdominal process or complication of her surgery. While her transaminases are quite elevated this is not unexpected given that she is postoperative day 1 from a cholecystectomy. I had a long discussion with the patient's family as well as herself and reviewed return precautions in detail. She will call tomorrow to arrange for close follow-up with her surgeon. She will return right away should she develop any fevers, worsening pain, vomiting or other concerning signs or symptoms. She was prescribed Zofran to take in addition to her pain medications. Source of Hx: Old records Time of Eval: 21:56 Re-Evaluation/Progress Note: Discussed lab and radiology results and plan to discharge. Patient is amenable to the plan. Return precautions given. All other questions addressed. Counseled Regarding: Diagnosis, Lab results, Need for follow-up, When/why to return to ED Discharge & Departure Primary Impression: Postoperative abdominal pain Additional Impressions: Nausea Elevated transaminase level Disposition: Home Discharge Condition All VS Reviewed: Yes Condition: Stable Additional Instructions: Thank you for seeking care at emergency room. It is difficult for us to make definitive diagnoses in the ED but we believe that you are experiencing postoperative pain. Our primary goal today in the ED was to evaluate you for any life-threatening conditions. Your evaluation was reassuring. Your liver enzymes were quite elevated though this is often normal after having surgery. He should follow up with your surgeon or regular doctor in the next couple of days to have these rechecked. You will be discharged with a prescription for Zofran for nausea, please take as directed. Please take your pain medications as prescribed. Please call first thing tomorrow to arrange for follow-up with your surgeon. You should return to the ED immediately if you develop any worsening symptoms, pain, fevers, vomiting, cough, shortness of breath, chest pain, lightheadedness , weakness or any other concerning signs or symptoms. Thank you for letting us partake in your care today. [facility] Harpre Attestation Portions of this note were transcribed by Zain Cristobal. I, Dr. Flores, personally performed the history, physical exam and medical decision-making; I reviewed and confirmed the accuracy of the information in the transcribed note. Signed by: Harper Rockwell, 08/02/2016 and 21:59 copies to: [facility] Beck O MD Aug 02, 2016 20:09 ZAIN CRISTOBAL Aug 02, 2016 20:20
[2016-08-02] MEDS ORDERED: Ondansetron 2 mg/mL 2 mL Inj ONE ×2 (20:40→22:04)
[2016-08-02] MEDS: HYDROmorphone 0.5 mg/0.5 mL iSecure Syringe IVPUSH PRN ×2 (20:48→22:15)
[2016-08-02 20:51] LABS: BASOPHILS % (AUTO) 0.7 % (0-3); MONOCYTES % (AUTO) 6.3 % (4-12); Mean Corpuscular Hemoglobin 27.7 pg (27.0-35.0); Mean Corpuscular Volume 82.9 fL (81-100); NEUTROPHILS % (AUTO) 54.2 % (40-74); Platelet Count 176 bil/L (150-400)
[2016-08-02 20:56] LABS: APPEARANCE,URINE CLEAR (CLEAR,HAZY); COLOR,URINE YELLOW (YELLOW); OCCULT BLOOD,URINE NEGATIVE (NEGATIVE); PH,URINE 6.5 (5.0-8.0)
[2016-08-02 20:57] LABS: UROBILINOGEN,URINE NORMAL (NORMAL)
[2016-08-02 21:04] LABS: Magnesium 2.1 mg/dL (1.6-2.6)
--- NOTE | 2016-08-02 21:43 | DRSVH ---
PROCEDURE: CT ABDOMEN AND PELVIS WITH CONTRAST ([id number]) INDICATIONS: post op lap fadi, assess for bleeding/complicatio TECHNIQUE: After the administration of oral and intravenous contrast, 5 mm thick sections acquired from the diap hragms to the symphysis. 5 mm thick coronal and sagittal reformats were performed. For radiation do se reduction, the following was used: automated exposure control, adjustment of mA and/or kV accordi ng to patient size. COMPARISON: None. FINDINGS: Image quality: Excellent. ABDOMEN: Lung bases: Lung bases are clear. Heart size is normal. Solid organs: Liver and spleen are normal in size and enhancement. Gallbladder is surgically absent and there are small bubbles of gas seen within the gallbladder fossa in addition to mild intraperito carl free air presumably related to recent surgery. No abscess, focal fluid collection seen. There is mild stranding in the gallbladder fossa. Biliary system is non-dilated. Pancreas enhances normally . No adrenal nodules. Kidneys are normal in size and enhancement, without hydronephrosis. Peritoneum and bowel: Stomach, small bowel, and colon loops are normal in caliber and wall thickness . No free fluid or air. Normal appendix Nodes and vessels: No retroperitoneal or mesenteric adenopathy. Aorta and inferior vena cava are no rmal in caliber. Miscellaneous: No ventral hernias. There is midline presumed postoperative edema and stranding with in the anterior abdominal wall. PELVIS: Genitourinary: Bladder is distended, and the wall thickness is normal. Miscellaneous: No inguinal hernias or adenopathy. Bones: No suspicious bony lesions. No vertebral body compression fractures. IMPRESSION: Postoperative changes within the gallbladder fossa and mild scattered intraperitoneal free air, presu mably from recent surgery. No abscess seen. Dictated by: Onel Parish M.D. on 08/02/2016 at 21:38 Approved by: Onel Parish M.D. on 08/02/2016 at 21:43
[2016-08-02] MEDS ORDERED: ONDA4TAB9 PO (22:00)
[2016-08-02 22:16] VITALS: BP 117/83; PULSE 72; RESP 20; O2SAT 99
== END 2016-08-02 22:17 | disposition home or self-care (01) ==
LOC: SED 18:59
DX: G89.18 Other acute postprocedural pain (principal); R10.9 Unspecified abdominal pain; R11.0 Nausea; R74.0 Nonspecific elevation of levels of transaminase and lactic acid dehydrogenase [LDH]; R42 Dizziness and giddiness; I10 Essential (primary) hypertension; Z79.82 Long term (current) use of aspirin; Z90.49 Acquired absence of other specified parts of digestive tract
CPT/HCPCS: 74177; 80053; 81000; 81025; 83690; 83735; 85025; 96361; 96374; 96375; 96376; 99285; J1170; J2405; J7030; Q9967